=== PATIENT | male | born 1995 | race Caucasian/White ===

== ENCOUNTER 2017-03-06 15:18 | Emergency (ER) | payer SELFPAY ==
[~2017-03-06] VITALS: Wt 72.5 kg
[2017-03-06] MEDS ORDERED: HYDROCODONE/APAP (5/325) TAB PO ONE (16:00)
[2017-03-06 16:03] LABS: BASOPHILS % 0.2 % (0.0-2.0); EOSINOPHILS # 0.2 10^3/ul (0.0-0.5); EOSINOPHILS % 3.5 % (0.0-7.0); HEMATOCRIT 43.8 % (42.0-52.0); HEMOGLOBIN 14.1 g/dl (14.0-18.0); LYMPHOCYTES # 1.2 10^3/ul (0.8-2.9); LYMPHOCYTES % 23.5 % (18.0-55.0); MEAN CORPUSCULAR HEMOGLOBIN 29.9 pg (29.0-33.0); MEAN CORPUSCULAR HGB CONC 32.2 g/dl (32.0-37.0); MEAN CORPUSCULAR VOLUME 92.8 fl (72.0-104.0); MEAN PLATELET VOLUME 9.2 fl (7.4-10.4); MONOCYTE # 0.4 10^3/ul (0.3-0.9); MONOCYTES % 8.5 % (0.0-13.0); NEUTROPHILS % 64.1 % (30.0-74.0); PLATELET COUNT 187 10^3/UL (140-415); RED BLOOD COUNT 4.72 10^6/ul (4.70-6.10); RED CELL DISTRIBUTION WIDTH 11.9 % (11.5-14.5); WHITE BLOOD COUNT 5.2 10^3/ul (4.8-10.8)
[2017-03-06 16:07] LABS: ADD UMIC NO; UR ASCORBIC ACID NEGATIVE (NEGATIVE); UR BILIRUBIN (Dip) NEGATIVE (NEGATIVE); UR BLOOD (Dip) NEGATIVE (NEGATIVE); UR CLARITY CLEAR (CLEAR); UR COLOR YELLOW (YELLOW); UR GLUCOSE (Dip) NEGATIVE (NEGATIVE); UR KETONES (Dip) NEGATIVE (NEGATIVE); UR LEUKOCYTE ESTERASE (Dip) NEGATIVE Leu/ul (NEGATIVE); UR NITRITE (Dip) NEGATIVE (NEGATIVE); UR SPECIFIC GRAVITY (Dip) 1.024 (1.003-1.030); UR TOTAL PROTEIN (Dip) NEGATIVE (NEGATIVE); UR UROBILINOGEN (Dip) NEGATIVE (NEGATIVE)
[2017-03-06 16:27] LABS: ALBUMIN 4.5 g/dl (3.3-4.9); ALBUMIN/GLOBULIN RATIO 1.55; BILIRUBIN,INDIRECT 0.3 mg/dl (0-1.1); BILIRUBIN,TOTAL 0.3 mg/dl (0.2-1.3); CALCIUM 9.4 mg/dl (8.4-10.2); CREATININE 0.78 mg/dl (0.61-1.24); POTASSIUM 3.8 mmol/L (3.5-5.1); TOTAL PROTEIN 7.4 g/dl (6.1-8.1)
--- NOTE | 2017-03-06 16:31 | RADRPT ---
PROCEDURE: Scrotal ultrasound CLINICAL INDICATION: Pain. TECHNIQUE: Scrotal ultrasound was performed with sagittal and transverse views. Funes scale and co ben imaging was performed. Images were reviewed on high resolution PACS monitors. COMPARISON: None available FINDINGS: The right testicle measures 4.6 x 2.1 x 2.7 cm. The left testicle measures 4.8 x 2.1 x 2.6 cm. There is normal size and echogenicity and morphology bilaterally. There is normal blood flow seen bilaterally. The epididymi are normal. No hydrocele is identified. There is no evidence for varicocele. The soft tissues are unremarkable. No mass or cyst or other abnormality is seen. IMPRESSION: 1. Unremarkable scrotal ultrasound. 2. Symmetrically normal testes and epididymi. RPTAT: [facility] Physician Suresh Date Time Electronically viewed and signed by Physician Suresh on 03/06/2017 16:31 /
--- NOTE | 2017-03-06 16:31 | RADRPT ---
PROCEDURE: CT Abdomen and pelvis without contrast. CLINICAL INDICATION: Right lower quadrant abdominal pain for 3 weeks. TECHNIQUE: CT scan of the abdomen and pelvis without contrast was performed on a multidetector hig h-resolution CT scan. . Coronal and sagittal reformatted images were obtained from the axial [facility] e images. Standard CT scan of the abdomen pelvis without contrast protocols were performed. The total exam CTDI equals 11.26 mGy and the total exam DLP equals 683.86 mGy-cm. One or more of the following dose reduction techniques were used: - Automated exposure control. - Adjustment of the mA and/or kV according to patient size. Use of iterative reconstruction technique. COMPARISON: None. FINDINGS: The appendix is unremarkable. There is gas and feces throughout the large bowel and rule out consti pation. The colon is otherwise unremarkable. The stomach and small bowel are unremarkable. Negati ve for intra-abdominal free air, free fluid, abscesses or lymphadenopathy. The kidneys are normal in size without calcified renal calculi, hydronephrosis or intra renal masses bilaterally. The urinary bladder and prostate are unremarkable. The liver spleen pancreas adrenal glands and gallbladder are unremarkable. No evidence biliary duct al dilation. The aorta is unremarkable. The abdominal pelvic page are unremarkable. Lung bases are unremarkable . Small sclerotic density involving the right ischium is consistent with a bone island. The osseous s tructures are otherwise unremarkable without acute osseous findings, osteoblastic or osteolytic lesi ons. IMPRESSION: 1. Unremarkable appendix. No evidence of gastrointestinal disease. 2. Negative for intra-abdominal free air fluid abscesses or lymphadenopathy. 3. No evidence of calcified urinary calculi or obstructive uropathy. RPTAT:AAJJ Physician Janee Date Time Electronically viewed and signed by Physician Janee on 03/06/2017 16:30 BM/
[2017-03-06] MEDS ORDERED: IBUP-1542 PO (16:36)
--- NOTE | 2017-03-06 16:58 | ERD ---
ER Documentation Chief Complaint Date/Time DATE: 03/06/17 TIME: 16:53 Chief Complaint RLQ ABD PAIN, ONSET 3 WEEKS, NO N/V/D HPI This is a 21-year-old male presents to the ER with right lower quadrant abdominal pain over the last 3 weeks. Patient states that he has a hernia. Pain is worse whenever he lifts something heavy. He denies any fevers or chills. He denies any nausea vomiting or diarrhea. Patient denies any testicular pain however he does admit to some groin pain. Pain is intermittent throbbing in quality. It is nonradiating. Patient has not taken anything for the pain. ROS 12 point review of systems was done, all negative except per HPI. Medications Home Meds Active Scripts Ibuprofen* (Ibuprofen*) 600 Mg Tablet, 600 MG PO Q6 for 5 Days, TAB Prov:MARILUZ GREENBERG Roxane 03/06/17 Allergies Allergies: Coded Allergies: amoxicillin (Verified Allergy, Unknown, 03/06/17) PMhx/Soc History of Surgery: No Anesthesia Reaction: No Hx Neurological Disorder: No Hx Respiratory Disorders: No Hx Cardiac Disorders: No Hx Psychiatric Problems: No Hx Miscellaneous Medical Probl: No Hx Alcohol Use: No Hx Substance Use: No Hx Tobacco Use: No Smoking Status: Never smoker Physical Exam Vitals Vital Signs Date Time Temp Pulse Resp B/P Pulse Ox O2 Delivery O2 Flow Rate FiO2 03/06/17 15:20 99.8 80 18 135/59 98 Physical Exam GENERAL: The patient is well developed and appropriate for usual state of health , in no apparent distress. HEENT: Atraumatic CHEST: Clear to auscultation bilaterally. There are no rales, wheezes or rhonchi. HEART: Regular rate and rhythm. No murmurs, clicks, rubs or gallops. ABDOMEN: Soft, nontender and nondistended. Good bowel sounds. No rebound or guarding. No gross peritonitis. No gross organomegaly or masses. No Silva sign or McBurney point tenderness. BACK: No midline or flank tenderness. NEURO: Alert and oriented. SKIN: The skin is warm and dry. Result Diagram: 03/06/17 1550 03/06/17 1550 Results 24 hrs Laboratory Tests Test 03/06/17 15:50 White Blood Count 5.210^3/ul Red Blood Count 4.7210^6/ul Hemoglobin 14.1g/dl Hematocrit 43.8% Mean Corpuscular Volume 92.8fl Mean Corpuscular Hemoglobin 29.9pg Mean Corpuscular Hemoglobin Concent 32.2g/dl Red Cell Distribution Width 11.9% Platelet Count 80772^3/UL Mean Platelet Volume 9.2fl Neutrophils % 64.1% Lymphocytes % 23.5% Monocytes % 8.5% Eosinophils % 3.5% Basophils % 0.2% Nucleated Red Blood Cells % 0.0/100WBC Neutrophils # (Manual) 310^3/ul Lymphocytes # 1.210^3/ul Monocytes # 0.410^3/ul Eosinophils # 0.210^3/ul Basophils # 0.010^3/ul Nucleated Red Blood Cells # 0.010^3/ul Urine Color YELLOW Urine Clarity CLEAR Urine pH 6.0 Urine Specific [place] 1.024 Urine Ketones NEGATIVEmg/dL Urine Nitrite NEGATIVEmg/dL Urine Bilirubin NEGATIVEmg/dL Urine Urobilinogen NEGATIVEmg/dL Urine Leukocyte Esterase NEGATIVELeu/ul Urine Hemoglobin NEGATIVEmg/dL Urine Glucose NEGATIVEmg/dL Urine Total Protein NEGATIVEmg/dl Sodium Level 141mmol/L Potassium Level 3.8mmol/L Chloride Level 104mmol/L Carbon Dioxide Level 24mmol/L Anion Gap 17 Blood Urea Nitrogen 12mg/dl Creatinine 0.78mg/dl Glucose Level 92mg/dl Calcium Level 9.4mg/dl Total Bilirubin 0.3mg/dl Direct Bilirubin 0.00mg/dl Indirect Bilirubin 0.3mg/dl Aspartate Amino Transf (AST/SGOT) 27IU/L Alanine Aminotransferase (ALT/SGPT) 31IU/L Alkaline Phosphatase 69IU/L Total Protein 7.4g/dl Albumin 4.5g/dl Globulin 2.90g/dl Albumin/Globulin Ratio 1.55 Lipase 79U/L Current Medications Medications (Trade) Dose Ordered Sig/Tereas Route PRN Reason Start Time Stop Time Status Last Admin Dose Admin Acetaminophen/ Hydrocodone Bitart ([place] (5/325)) 1 tab ONCE ONCE PO 03/06/17 16:00 03/06/17 16:01 DC 03/06/17 15:[address] [address] Radiology Main Line: [phone] DIAGNOSTIC IMAGING REPORT Patient: FRANSISCA RAMIREZ : 1995 Age: 21 Sex: M MR #: [id number] DOS: 03/06/17 1531 Ordering MD: MARILUZ GREENBERG PA-C [facility] Room/Bed: PROCEDURE: CT Abdomen and pelvis without contrast. CLINICAL INDICATION: Right lower quadrant abdominal pain for 3 weeks. TECHNIQUE: CT scan of the abdomen and pelvis without contrast was performed on a multidetector high-resolution CT scan. . Coronal and sagittal reformatted images were obtained from the axial source images. Standard CT scan of the abdomen pelvis without contrast protocols were performed. The total exam CTDI equals 11.26 mGy and the total exam DLP equals 683.86 mGy- cm. One or more of the following dose reduction techniques were used: - Automated exposure control. - Adjustment of the mA and/or kV according to patient size. Use of iterative reconstruction technique. COMPARISON: None. FINDINGS: The appendix is unremarkable. There is gas and feces throughout the large bowel and rule out constipation. The colon is otherwise unremarkable. The stomach and small bowel are unremarkable. Negative for intra-abdominal free air , free fluid, abscesses or lymphadenopathy. The kidneys are normal in size without calcified renal calculi, hydronephrosis or intra renal masses bilaterally. The urinary bladder and prostate are unremarkable. The liver spleen pancreas adrenal glands and gallbladder are unremarkable. No evidence biliary ductal dilation. The aorta is unremarkable. The abdominal pelvic page are unremarkable. Lung bases are unremarkable. Small sclerotic density involving the right ischium is consistent with a bone island. The osseous structures are otherwise unremarkable without acute osseous findings, osteoblastic or osteolytic lesions. IMPRESSION: 1. Unremarkable appendix. No evidence of gastrointestinal disease. 2. Negative for intra-abdominal free air fluid abscesses or lymphadenopathy. 3. No evidence of calcified urinary calculi or obstructive uropathy. RPTAT:AAJJ Physician Janee Date Time Electronically viewed and signed by Physician Janee on 03/06/2017 16:30 BM/ CC: DIONICIO,MARILUZ C [facility] [id number] [address] Radiology Main Line: [phone] DIAGNOSTIC IMAGING REPORT Patient: FRANSISCA RAMIREZ : 1995 Age: 21 Sex: M MR #: [id number] DOS: 03/06/17 1531 Ordering MD: MARILUZ GREENBERG. PA-C Location: [facility] Room/Bed: PROCEDURE: Scrotal ultrasound CLINICAL INDICATION: Pain. TECHNIQUE: Scrotal ultrasound was performed with sagittal and transverse views. Funes scale and color imaging was performed. Images were reviewed on high resolution PACS monitors. COMPARISON: None available FINDINGS: The right testicle measures 4.6 x 2.1 x 2.7 cm. The left testicle measures 4.8 x 2.1 x 2.6 cm. There is normal size and echogenicity and morphology bilaterally. There is normal blood flow seen bilaterally. The epididymi are normal. No hydrocele is identified. There is no evidence for varicocele. The soft tissues are unremarkable. No mass or cyst or other abnormality is seen. IMPRESSION: 1. Unremarkable scrotal ultrasound. 2. Symmetrically normal testes and epididymi. RPTAT: AACC Physician Suresh Date Time Electronically viewed and signed by Physician Suresh on 03/06/2017 16: 31 JH/ CC: MARILUZ GREENBERG Procedures/MDM Differential diagnosis includes but is not limited to appendicitis, diverticulitis, hernia, testicular torsion, UTI, constipation, epididymitis. This is a 21-year-old male presents ER with right lower quadrant pain that started 3 weeks ago. At this time suspicion for acute abdomen is low as his physical examination is completely benign. Patient is afebrile and extremely well-appearing. In regards to patient's hernia, there was no hernia seen on CT scan. Suspicion for incarcerated or strangulate hernias a low. Patient did not have any testicular pain on physical examination, however he did have inguinal pain, ultrasound of the testicles were ordered and there was no abnormalities found. Patient will be sent home with ibuprofen. He needs to follow-up with his primary care doctor within 1-2 days or return to ER sooner if symptoms worsen. My medical decision making shared with the patient he understands and agrees with plan. Departure Diagnosis: Primary Impression: Abdominal pain Condition: Stable Patient Instructions: Abdominal Pain Additional Instructions: Call your primary care doctor TOMORROW for an appointment during the next 1-2 days.See the doctor sooner or return here if your condition worsens before your appointment time. MARILUZ GREENBERG Mar 06, 2017 16:57
== END 2017-03-06 16:58 | disposition home or self-care (01) ==
LOC: FTE 15:18
DX: R10.31 Right lower quadrant pain (principal)
CPT/HCPCS: 36415; 74176; 76870; 80053; 81003; 83690; 85025